=== PATIENT | male | born 1985 | race Caucasian/White ===

== ENCOUNTER → 2018-01-13 | Outpatient (CLI) | payer MEDICARE, OTHER ==
--- NOTE | 2018-01-13 16:07 | XR ---
Abdomen HISTORY: Right lower quadrant pain Frontal view of the abdomen submitted on 2 images There is overlying artifact. No evident bowel obstruction or pneumoperitoneum. Ventriculoperitoneal s acosta tubing is present with the tip in the right hemiabdomen. Lung bases are clear. There is a spinal curvature. No pathologic calcification. IMPRESSION: Shunt tubing in place. Spinal curvature.
== END | disposition home or self-care (01) ==
LOC: RADXRYALE 15:27
PROVIDERS: ATTEND Internal Medicine
DX: R10.84 Generalized abdominal pain (principal); Z98.2 Presence of cerebrospinal fluid drainage device
CPT/HCPCS: 74018

== ENCOUNTER 2018-05-18 12:51 | Inpatient (IN) | payer MEDICARE, MEDICAID ==
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
[2018-05-18 14:49] LABS: Amphetamine Screen,Urine Not Detected (NotDetected); Barbiturate Screen,Urine Not Detected (NotDetected); Benzodiazepines Screen,Urine Not Detected (NotDetected); Cocaine Screen,Urine Not Detected (NotDetected); Methadone Screen, Urine Not Detected (NotDetected); Opiate Screen,Urine Not Detected (NotDetected); Oxycodone Screen, Urine Not Detected (NotDetected); Phencyclidine Screen,Urine Not Detected (NotDetected); Tricyclic Antidepressant,Urine Not Detected (NotDetected); Urn Cannabinoid Scrn Detected (NotDetected)
[2018-05-18] MEDS ORDERED: ZIPRASIDONE 20 MG VIAL IM STA (15:36)
[2018-05-18] MEDS ORDERED: LORazepam 2 MG/ML INJ IM STA (15:36)
[2018-05-18] MEDS ORDERED: HALOPERIDOL 5 MG TAB PO PRN (17:04)
[2018-05-18] MEDS ORDERED: HALOPERIDOL LACTATE 5 MG/ML 1 ML VIAL IM PRN (17:04)
[2018-05-18] MEDS ORDERED: LORazepam 2 MG/ML INJ IM PRN (17:08)
[2018-05-18] MEDS ORDERED: diphenhydrAMINE 50 MG/ML 1 ML VIAL IM PRN (17:21)
[2018-05-18] MEDS ORDERED: MAGNESIUM HYDROXIDE 2,400 MG/10 ML CUP PO PRN (17:27)
[2018-05-19] MEDS: PANTOPRAZOLE 40 MG TABLET PO SCH ×2 (09:12→17:23)
[2018-05-19 09:43] LABS: Basophils # (A) 0.1 k/uL (0-0.2); Basophils % (A) 1 %; Eosinophils # (A) 0.5 k/uL (0-0.7); Eosinophils % (A) 4 %; HCT 53.8 % (39.0-53.0); HGB 17.9 gm/dL (13.0-17.5); Lymphocytes # (A) 2.3 k/uL (1.0-4.8); Lymphocytes % (A) 17 %; MCH 33.3 pg (25.0-35.0); MCHC 33.3 g/dL (31.0-37.0); MCV 100.1 fL (80.0-100.0); Mean Platelet Volume 7.2; Monocytes # (A) 0.8 k/uL (0-1.0); Monocytes % (A) 6 %; Neutrophils # (A) 9.4 k/uL (1.3-7.7); Neutrophils % (A) 71 %; Platelet Count 406 k/uL (150-450); RBC 5.38 m/uL (4.30-5.90); RDW 12.5 % (11.5-15.5); WBC 13.1 k/uL (3.8-10.6)
[2018-05-19 10:09] LABS: ALT 22 U/L (21-72); AST 26 U/L (17-59); Albumin 4.1 g/dL (3.5-5.0); Alkaline Phosphatase 61 U/L (38-126); Anion Gap 10 mmol/L; Blood Urea Nitrogen 14 mg/dL (9-20); Calcium 9.7 mg/dL (8.4-10.2); Carbon Dioxide 24 mmol/L (22-30); Chloride 107 mmol/L (98-107); Glucose 91 mg/dL (74-99); Potassium 4.7 mmol/L (3.5-5.1); Sodium 141 mmol/L (137-145); Total Bilirubin 0.8 mg/dL (0.2-1.3); Total Protein 7.3 g/dL (6.3-8.2)
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
[2018-05-19] MEDS: DIVALPROEX ER 500 MG TAB.ER.24H PO SCH (20:00)
[2018-05-19] MEDS: LORazepam 1 MG TAB PO PRN (20:39)
[2018-05-20] MEDS: PANTOPRAZOLE 40 MG TABLET PO SCH ×2 (07:46→16:35)
[2018-05-20] MEDS: MAG HYDROX/AL HYDROX/SIMETH 30 ML CUP PO PRN (08:06)
--- NOTE | 2018-05-20 09:18 | P.PN ---
Progress Note - Text Interval history: The patient is found in the hallway headed to group he follows me to an interview room. Again the patient's is difficult to communicate with at times due to his expressive aphasia. He seems to answer some questions briefly. He indicates he slept last night. He indicates not liking the food here. He tries to communicate something to me verbally and by doing hand demonstration. I had him try to write out what he is trying to communicate and that was unsuccessful. He had written several letters some backwards and wrote 3 numbers. He demonstrates frustration in that he cannot express himself verbally or in writing. He indicates that he feels somewhat safe here but cannot expand on that answer. It appears he was compliant with the Depakote. Mental status exam: The patient is a male appearing his stated age she has a disheveled appearance he is dressed in hospital gowns. He is abrupt with his actions. He was cooperative and pleasant despite his frustrations with his lack of ability to express. He denies having any thoughts of harming himself or others. He is not able to provide any explanation for the aggressive behavior that was alleged prior to this admission. He endorses no hallucinations. Insight and judgment limited due to his traumatic brain injury. He appears distractible and stimulus bound throughout the session. Plan: We will continue the patient on the Depakote as written. We have begun a discussion regarding his placement needs once he is stabilized. We will need to determine if he is going to be eligible for alf placement through [facility] or if he will need to pursue [facility] home placement if financial resources are available. We will collaborate with his guardian regarding his treatment and discharge planning. Vital signs reviewed. We will continue to monitor him for safety.
[2018-05-20] MEDS: DIVALPROEX ER 500 MG TAB.ER.24H PO SCH (20:32)
[2018-05-20] MEDS: LORazepam 1 MG TAB PO PRN (20:48)
[2018-05-21] MEDS: PANTOPRAZOLE 40 MG TABLET PO SCH ×2 (07:59→16:27)
--- NOTE | 2018-05-21 08:49 | P.PN ---
Subjective Progress Note Date: 05/21/18 Progress Note - Text Interval history: The patient is found in the hallway headed to group he follows me to an interview room. Again the patient's is difficult to communicate with at times due to his expressive aphasia. He seems to answer some questions briefly. He indicates he slept last night. He indicates not liking the food here. He tries to communicate something to me verbally and by doing hand demonstration. I had him try to write out what he is trying to communicate and that was unsuccessful. He had written several letters some backwards and wrote 3 numbers. He demonstrates frustration in that he cannot express himself verbally or in writing. He indicates that he feels somewhat safe here but cannot expand on that answer. It appears he was compliant with the Depakote. Mental status exam: The patient is a male appearing his stated age she has a disheveled appearance he is dressed in hospital gowns. He is abrupt with his actions. He was cooperative and pleasant despite his frustrations with his lack of ability to express. He denies having any thoughts of harming himself or others. He is not able to provide any explanation for the aggressive behavior that was alleged prior to this admission. He endorses no hallucinations. Insight and judgment limited due to his traumatic brain injury. He appears distractible and stimulus bound throughout the session. Plan: We will continue the patient on the Depakote as written. We have begun a discussion regarding his placement needs once he is stabilized. We will need to determine if he is going to be eligible for retirement placement through [facility] or if he will need to pursue AF home placement if financial resources are available. We will collaborate with his guardian regarding his treatment and discharge planning. Vital signs reviewed. We will continue to monitor him for safety. Objective - Vital Signs Vital signs: Vital Signs Temp 97.6 F 05/18/18 17:39 Pulse 77 05/18/18 17:39 Resp 16 05/18/18 17:39 BP 138/96 05/18/18 17:39 Pulse Ox 99 05/18/18 17:39 - Labs CBC & Chem 7: 05/19/18 09:23 05/19/18 09:23
[2018-05-21] MEDS: MAG HYDROX/AL HYDROX/SIMETH 30 ML CUP PO PRN (09:02)
[2018-05-21 12:43] LABS: Appearance,Urine Turbid (Clear); Bacteria,Urine Rare /hpf; Bilirubin,Urine Negative (Negative); Blood,Urine Trace (Negative); Budding Yeast,Urine Few /hpf; Color,Urine Yellow; Glucose,Urine (UA) Negative (Negative); Ketones,Urine 1+ (Negative); Leukocyte Esterase,Urine Negative (Negative); Mucus,Urine Moderate /hpf; Nitrite,Urine Negative (Negative); Protein,Urine 3+ (Negative); RBC,Urine 5 /hpf (0-5); Specific Gravity,Urine 1.021 (1.001-1.035); Sperm,Urine Many /hpf; Urobilinogen,Urine <2.0 mg/dL (<2.0)
[2018-05-21] MEDS: DIVALPROEX ER 500 MG TAB.ER.24H PO SCH (20:20)
[2018-05-21] MEDS: LORazepam 1 MG TAB PO PRN (20:22)
[2018-05-21] MEDS: diphenhydrAMINE 50 MG CAP PO STA (21:51)
[2018-05-21] MEDS ORDERED: diphenhydrAMINE 50 MG CAP PO STA (22:26)
[2018-05-22] MEDS: PANTOPRAZOLE 40 MG TABLET PO SCH ×2 (07:53→16:38)
--- NOTE | 2018-05-22 09:36 | P.PN ---
Subjective Progress Note Date: 05/22/18 Progress Note - Text Interval history: The patient is found in the hallway headed to group he follows me to an interview room. Again the patient's is difficult to communicate with at times due to his expressive aphasia. He seems to answer some questions briefly. He indicates he slept last night. He indicates not liking the food here. He tries to communicate something to me verbally and by doing hand demonstration. I had him try to write out what he is trying to communicate and that was unsuccessful. He had written several letters some backwards and wrote 3 numbers. He demonstrates frustration in that he cannot express himself verbally or in writing. He indicates that he feels somewhat safe here but cannot expand on that answer. It appears he was compliant with the Depakote. Mental status exam: The patient is a male appearing his stated age she has a disheveled appearance he is dressed in hospital gowns. He is abrupt with his actions. He was cooperative and pleasant despite his frustrations with his lack of ability to express. He denies having any thoughts of harming himself or others. He is not able to provide any explanation for the aggressive behavior that was alleged prior to this admission. He endorses no hallucinations. Insight and judgment limited due to his traumatic brain injury. He appears distractible and stimulus bound throughout the session. Plan: We will continue the patient on the Depakote as written. We have begun a discussion regarding his placement needs once he is stabilized. We will need to determine if he is going to be eligible for correction placement through [facility] or if he will need to pursue AF home placement if financial resources are available. We will collaborate with his guardian regarding his treatment and discharge planning. Vital signs reviewed. We will continue to monitor him for safety. Objective - Vital Signs Vital signs: Vital Signs Temp 97.9 F 05/22/18 06:13 Pulse 80 05/22/18 06:13 Resp 16 05/22/18 06:13 BP 125/71 05/22/18 06:13 Pulse Ox 99 05/18/18 17:39 - Labs CBC & Chem 7: 05/19/18 09:23 05/19/18 09:23 Labs: Abnormal Lab Results - Last 24 Hours (Table) 05/21/18 Range/Units 12:30 Urine Protein 3+ H (Negative) Urine Ketones 1+ H (Negative) Urine Blood Trace H (Negative) Urine Bacteria Rare H (None) /hpf Urine Mucus Moderate H (None) /hpf Urine Yeast (Budding) Few H (None) /hpf Urine Sperm Many H (None) /hpf Assessment and Plan (1) Aggression Current Visit: Yes Status: Acute Priority: Medium Code(s): R46.89 - OTHER SYMPTOMS AND SIGNS INVOLVING APPEARANCE AND BEHAVIOR SNOMED Code(s): 65796278 (2) Agitation Current Visit: Yes Status: Acute Priority: Medium Code(s): R45.1 - RESTLESSNESS AND AGITATION SNOMED Code(s): 014867948 (3) Anxiety Current Visit: Yes Status: Acute Priority: Medium Code(s): F41.9 - ANXIETY DISORDER, UNSPECIFIED SNOMED Code(s): 12536069
[2018-05-22] MEDS ORDERED: diphenhydrAMINE 50 MG CAP PO STA (20:54)
[2018-05-22] MEDS: DIVALPROEX ER 500 MG TAB.ER.24H PO SCH (21:02)
[2018-05-23] MEDS: PANTOPRAZOLE 40 MG TABLET PO SCH ×2 (08:29→16:30)
--- NOTE | 2018-05-23 11:11 | P.PN ---
Progress Note - Text Interval history: The patient is found at the service desk associate he follows me to an interview room. He reports his mood is okay. Staff report no behavioral disturbances over the weekend. The patient has been compliant with the Depakote. Social work informed me that they did contact his guardian and they are amenable to AFC home placement and he should have sufficient income. Social work will begin pursuing available AFC homes. Again the patient is only able to participate in the interview in a limited fashion due to his expressive aphasia. He indicates that he is eating although he does not like the food here. He reports it's noisy and it's hard to sleep. Mental status exam: The patient is alert he has a disheveled appearance he is dressed in his own clothing. Eye contact is intermittent. Speech is spontaneous. He will make several statements and phrases that do not fit the context of our conversation. He does appear to understand several of the questions I ask or statements that I make. He will have repetitive statements mixed in with his answers. He demonstrates no verbal or physical aggressiveness. He consistently has a smiling affect. He attempts to use humor appropriately. Insight and judgment limited due to traumatic brain injury. He reports no thoughts of wanting to harm himself or others he is endorsing no hallucinations. Plan: The patient has been able to demonstrate consistent behavior while on the mental health unit so far. He appears to be tolerating the Depakote appropriately. We will draw a Depakote level and check the liver enzymes. Social work will begin looking for AFC home placement. We will monitor his vitals further we will monitor him for safety.
[2018-05-23] MEDS: DIVALPROEX ER 500 MG TAB.ER.24H PO SCH (20:26)
[2018-05-23] MEDS: LORazepam 1 MG TAB PO PRN (22:15)
[2018-05-24] MEDS: PANTOPRAZOLE 40 MG TABLET PO SCH ×2 (08:01→16:37)
[2018-05-24 11:05] LABS: Valproic Acid (Depakene) 37.8 ug/mL
--- NOTE | 2018-05-24 13:52 | P.HP ---
Psychiatric H&P - . History & Physical: 05/24/18 13:48 Interval history: The patient is found in the hallway he follows me to an interview room. He reports his mood is stable. Staff report no behavioral issues in the last 24 hours. The patient's is eating he selectively participates in group. Depakote level was drawn this morning and it was approximately 37. Again the patient has an expressive aphasia and it is difficult to me indicating with him. Mental status exam: The patient is alert he has a disheveled appearance he is dressed in his own clothing. Eye contact is appropriate he has some spontaneous speech, however he has great difficulty communicating. He will state random letters or words and at times say phrases that seem to fit the context of the conversation. He does have expressions that seem to be congruent to the conversation at times indicating he understands what I was saying. He demonstrates no verbal or physical aggressiveness. He is endorsing no hallucinations. Affect is bright and smiling throughout the session. Insight and judgment limited. Plan: The patient will continue on the Depakote ER, we will titrate the dose to 1250 mg at bedtime. We are using this medication to stabilize mood and affect and hopefully reduce aggressive impulses. He has demonstrated appropriate behavior while here. We will look for an appropriate AFC home placement for him. Vital signs reviewed.
[2018-05-24] MEDS: LORazepam 1 MG TAB PO PRN (20:42)
[2018-05-24] MEDS: DIVALPROEX ER 250 MG TAB.ER.24H PO SCH (20:42)
[2018-05-24] MEDS: DIVALPROEX ER 500 MG TAB.ER.24H PO SCH (20:42)
[2018-05-24] MEDS: MAG HYDROX/AL HYDROX/SIMETH 30 ML CUP PO PRN (20:42)
[2018-05-24] MEDS: ACETAMINOPHEN TAB 325 MG TAB PO PRN (20:44)
[2018-05-25] MEDS: PANTOPRAZOLE 40 MG TABLET PO SCH ×2 (07:49→15:33)
--- NOTE | 2018-05-25 10:19 | P.PN ---
Progress Note - Text Interval history: The patient is found in group he follows me to an interview room. He was observed attempting to participate in group. He is recorded to have slept 6 hours last evening. Appetite is stable. The patient has demonstrated no agitated behavior. He has been compliant with medication. We will get an update from social work regarding placement options. Mental status exam: The patient is alert he is dressed in the same clothing. He has a disheveled appearance hygiene is adequate. He reports feeling safe. He seems to indicate he has no thoughts of harming himself or others. Again it is difficult communicating due to his expressive aphasia. He demonstrates no verbal or physical aggressiveness during our session. He does demonstrate some understanding of what I am telling him. Affect remains bright and often smiling. He is reporting no hallucinations. Insight and judgment limited. Plan: The patient will continue on his current medication the Depakote has been titrated. We will draw another blood level when appropriate. We are awaiting [facility] home placement options. Vital signs reviewed. We will continue monitoring him for safety.
[2018-05-25] MEDS: MAG HYDROX/AL HYDROX/SIMETH 30 ML CUP PO PRN ×2 (10:45→14:32)
[2018-05-25] MEDS: ARTIFICIAL TEARS-HYPROMELLOSE DROPS 15 ML BTL RIGHT EYE PRN (13:13)
[2018-05-25] MEDS: DIVALPROEX ER 250 MG TAB.ER.24H PO SCH (20:08)
[2018-05-25] MEDS: DIVALPROEX ER 500 MG TAB.ER.24H PO SCH (20:09)
[2018-05-25] MEDS: ACETAMINOPHEN TAB 325 MG TAB PO PRN (21:31)
[2018-05-25] MEDS: LORazepam 1 MG TAB PO PRN (21:31)
[2018-05-26] MEDS: ARTIFICIAL TEARS-HYPROMELLOSE DROPS 15 ML BTL RIGHT EYE PRN (06:12)
[2018-05-26] MEDS: PANTOPRAZOLE 40 MG TABLET PO SCH ×2 (09:08→17:43)
[2018-05-26 09:43] VITALS: BMI 29.4
[2018-05-26] MEDS: MAG HYDROX/AL HYDROX/SIMETH 30 ML CUP PO PRN ×2 (10:48→20:22)
[2018-05-26] MEDS: LORazepam 1 MG TAB PO PRN (10:49)
[2018-05-26] MEDS ORDERED: SODIUM CHLORIDE 0.65% NASAL SPRAY 44 ML BTL NASAL PRN (14:30)
[2018-05-26] MEDS ORDERED: SALINE NASAL GEL 14.1 GM TUBE TOPICAL PRN (14:30)
--- NOTE | 2018-05-26 16:30 | P.PN ---
Progress Note - Text Interval history: The patient is found in group he refuses to meet with me as he wants to continue group participation. I did speak with him briefly afterwards. Staff report that the patient is doing quite well given his diagnosis and previous history of behavioral issues. He appears to be sleeping at night he is eating there have been no behavioral disturbances in the last 24 hours. I was informed that he may be appropriate for fpc placement as early as Wednesday. Mental status exam: The patient is observed participating in group appropriately. He is interacting with staff appropriately. He utilizes humor when possible. He has a disheveled appearance eye contact is appropriate. He is demonstrating no verbal or physical aggressiveness. He indicates having no auditory or visual hallucinations or any thoughts of harming himself or others. He is alert. He continues to demonstrate the ongoing significant expressive aphasia. Plan: The patient will continue on his current medications we will draw a Depakote level soon. We are anticipating placement at a [facility] Wednesday.
[2018-05-26] MEDS: LORATADINE 10 MG TAB PO SCH (17:43)
[2018-05-26] MEDS: DIVALPROEX ER 500 MG TAB.ER.24H PO SCH ×2 (20:20→20:23)
[2018-05-26] MEDS: DIVALPROEX ER 250 MG TAB.ER.24H PO SCH ×2 (20:20→20:23)
[2018-05-27] MEDS: MAG HYDROX/AL HYDROX/SIMETH 30 ML CUP PO PRN (08:08)
[2018-05-27] MEDS: LORATADINE 10 MG TAB PO SCH (08:08)
[2018-05-27] MEDS: PANTOPRAZOLE 40 MG TABLET PO SCH ×2 (08:08→16:39)
--- NOTE | 2018-05-27 11:22 | P.PN ---
Progress Note - Text Interval history: The patient is found at the desk he follows me to an interview room. It is confirmed that the patient is able to transition to a [facility] bed Wednesday. The patient's guardian is agreeable to this discharge plan. The patient continues to maintain appropriate behavior he has been compliant with medication. Staff voiced no concerns about him being discharged to [facility] placement. No behavioral disturbances in the last 24 hours. Mental status exam: The patient is alert he has a disheveled appearance he is dressed in the same clothing. Hygiene is adequate. He chronically demonstrates an expressive aphasia. He does get frustrated when he cannot communicate his thoughts to me but he does not become agitated. He will often ask for a pen and paper to draw or write something that will sometimes assist us in the conversation. He has repetitive phrases that he will use throughout the session. He is reporting no thoughts of self-harm or harm to others. He is endorsing no hallucinations. He reports feeling safe. He demonstrates no physical aggressiveness. Insight and judgment chronically limited. Plan: The patient will continue on his current medication we will draw a Depakote level tomorrow morning. We will anticipate discharging him Wednesday to a [facility] if he remains clinically stable. Vital signs reviewed.
[2018-05-27] MEDS: ARTIFICIAL TEARS-HYPROMELLOSE DROPS 15 ML BTL RIGHT EYE PRN (12:57)
[2018-05-27] MEDS: DIVALPROEX ER 250 MG TAB.ER.24H PO SCH (22:01)
[2018-05-27] MEDS: DIVALPROEX ER 500 MG TAB.ER.24H PO SCH (22:04)
[2018-05-27] MEDS: LORazepam 1 MG TAB PO PRN (22:42)
[2018-05-28] MEDS: PANTOPRAZOLE 40 MG TABLET PO SCH ×2 (08:03→17:16)
[2018-05-28] MEDS: LORATADINE 10 MG TAB PO SCH (08:03)
[2018-05-28 09:38] LABS: Valproic Acid (Depakene) 49.6 ug/mL
[2018-05-28] MEDS: MAG HYDROX/AL HYDROX/SIMETH 30 ML CUP PO PRN (17:17)
--- NOTE | 2018-05-28 17:23 | P.PN ---
Progress Note - Text Progress Note Date: 05/28/18 Interval history: Patient seen in cross coverage today. He does not voice any adverse psychotropic medication side effects. He seems to relate that medications could be working better for sleep. Mental status exam: He is alert and cooperative with the interview. He does not show any agitation. He does exhibit some expressive aphasia. He does not show any agitation. He does not verbalize any thoughts of harm to self or others. Mood currently appears to be fairly stable. Plan: Patient will be maintained on current psychotropic medication regimen. Continue to monitor his ongoing status and monitor for any medication side effects.
[2018-05-28] MEDS: DIVALPROEX ER 500 MG TAB.ER.24H PO SCH (20:08)
[2018-05-28] MEDS: DIVALPROEX ER 250 MG TAB.ER.24H PO SCH (20:08)
[2018-05-29] MEDS: ARTIFICIAL TEARS-HYPROMELLOSE DROPS 15 ML BTL RIGHT EYE PRN ×2 (08:24→17:19)
[2018-05-29] MEDS: PANTOPRAZOLE 40 MG TABLET PO SCH ×2 (08:24→17:16)
[2018-05-29] MEDS: LORATADINE 10 MG TAB PO SCH (08:24)
[2018-05-29] MEDS: MAG HYDROX/AL HYDROX/SIMETH 30 ML CUP PO PRN (14:46)
--- NOTE | 2018-05-29 15:33 | P.PN ---
Progress Note - Text Progress Note Date: 05/29/18 Interval history: Patient is seen again in cross coverage today. He reports that his mood is doing okay but he does feel like he is crying some today because he misses his family. He says he is taking his psychotropic medications. Mental status exam: He is alert and cooperative with the interview. He does exhibit some expressive aphasia. He denies any thoughts of harm to self or others. He denies any hallucinations. He does not show any agitation. Plan: Patient will be maintained on current psychotropic medication regimen. Continue to monitor for any medication side effects monitor his ongoing response to treatment.
[2018-05-29] MEDS: DIVALPROEX ER 250 MG TAB.ER.24H PO SCH (19:50)
[2018-05-29] MEDS: DIVALPROEX ER 500 MG TAB.ER.24H PO SCH (19:50)
[2018-05-29] MEDS: LORazepam 1 MG TAB PO PRN (22:58)
[2018-05-30 05:16] VITALS: BP 141/79; PULSE 80; RESP 14; TEMP 98.4
[2018-05-30] MEDS: PANTOPRAZOLE 40 MG TABLET PO SCH (07:46)
[2018-05-30] MEDS: LORATADINE 10 MG TAB PO SCH (07:46)
[2018-05-30] MEDS: ARTIFICIAL TEARS-HYPROMELLOSE DROPS 15 ML BTL RIGHT EYE PRN (08:45)
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
== END 2018-05-30 09:55 | disposition home or self-care (01) | DRG 885 ==
LOC: EC 12:51 → 3MHU 16:53
PROVIDERS: ADMIT Psychiatry & Neurology Psychiatry; ATTEND Psychiatry & Neurology Psychiatry
DX: F31.9 Bipolar disorder, unspecified (principal); R47.01 Aphasia; I69.851 Hemiplegia and hemiparesis following other cerebrovascular disease affecting right dominant side; F41.9 Anxiety disorder, unspecified; F17.200 Nicotine dependence, unspecified, uncomplicated; F90.9 Attention-deficit hyperactivity disorder, unspecified type; G40.909 Epilepsy, unspecified, not intractable, without status epilepticus; G47.30 Sleep apnea, unspecified; K21.9 Gastro-esophageal reflux disease without esophagitis; Z82.3 Family history of stroke; Z87.820 Personal history of traumatic brain injury; Z98.2 Presence of cerebrospinal fluid drainage device; Z83.2 Family history of diseases of the blood and blood-forming organs and certain disorders involving the immune mechanism; Z80.9 Family history of malignant neoplasm, unspecified; Z88.8 Allergy status to other drugs, medicaments and biological substances; Z79.899 Other long term (current) drug therapy; R26.0 Ataxic gait; R26.81 Unsteadiness on feet; Z87.01 Personal history of pneumonia (recurrent); G62.9 Polyneuropathy, unspecified; D72.829 Elevated white blood cell count, unspecified; Z71.51 Drug abuse counseling and surveillance of drug abuser; Z71.6 Tobacco abuse counseling; F17.210 Nicotine dependence, cigarettes, uncomplicated; F12.10 Cannabis abuse, uncomplicated; Z63.4 Disappearance and death of family member; Z86.14 Personal history of Methicillin resistant Staphylococcus aureus infection; Z90.81 Acquired absence of spleen; Z56.0 Unemployment, unspecified; F10.10 Alcohol abuse, uncomplicated; V49.9XXS Car occupant (driver) (passenger) injured in unspecified traffic accident, sequela
CPT/HCPCS: 80053; 80164; 80306; 81001; 82075; 84443; 84450; 84460; 85025; 96372; 99285

== ENCOUNTER 2018-06-08 22:54 | Emergency (ER) | payer MEDICARE, OTHER ==
[2018-06-08 23:21] VITALS: BP 125/88; PULSE 71; RESP 20; TEMP 97.7
[2018-06-09] MEDS ORDERED: ACETAMINOPHEN TAB 500 MG TAB PO STA (00:30)
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
--- NOTE | 2018-06-09 01:08 | XR ---
EXAMINATION TYPE: XR ankle complete RT DATE OF EXAM: 06/09/2018 COMPARISON: NONE HISTORY: Pain TECHNIQUE: 3 views FINDINGS: Ankle mortise is anatomic. I see no fracture nor dislocation. Joint spaces are normal. IMPRESSION: Negative right ankle exam.
--- NOTE | 2018-06-09 01:09 | XR ---
EXAMINATION TYPE: XR foot complete RT DATE OF EXAM: 06/09/2018 COMPARISON: NONE HISTORY: Pain TECHNIQUE: 3 views FINDINGS: Metatarsals appear intact. I see no fracture nor dislocation. Joint spaces are normal. IMPRESSION: Negative right foot exam.
--- NOTE | 2018-06-09 01:11 | XR ---
EXAMINATION TYPE: XR hand complete RT DATE OF EXAM: 06/09/2018 COMPARISON: 04/05/2014 HISTORY: Pain TECHNIQUE: 3 views FINDINGS: There is some subluxation deformity at the second through fifth MP joints. Metacarpals appe ar intact. Carpal bones are intact. There is no view obtained in anatomic position. I see no erosions . IMPRESSION: There is subluxation deformity that could relate to ligament laxity. No fracture seen. I do not see erosions to suggest rheumatoid arthritis. Subluxation is worse than last exam.
== END 2018-06-09 02:10 | disposition home or self-care (01) ==
LOC: EC 22:54
DX: M79.671 Pain in right foot (principal); M79.641 Pain in right hand; R60.0 Localized edema; G47.30 Sleep apnea, unspecified; Z99.89 Dependence on other enabling machines and devices; F17.200 Nicotine dependence, unspecified, uncomplicated; Z86.14 Personal history of Methicillin resistant Staphylococcus aureus infection; Z79.899 Other long term (current) drug therapy; Z88.8 Allergy status to other drugs, medicaments and biological substances; Z91.09 Other allergy status, other than to drugs and biological substances
CPT/HCPCS: 99283

== ENCOUNTER → 2018-07-26 | Outpatient (CLI) | payer MEDICARE, OTHER ==
[2018-07-26 15:55] LABS: Valproic Acid (Depakene) 61.8 ug/mL (50.0-100.0)
[2018-07-26 16:36] LABS: Albumin 4.3 g/dL (3.80-4.90); Albumin/Globulin Ratio 1.79 (1.20-2.10); Bilirubin, Conjugated 0.2 mg/dL (0.20-0.40); Bilirubin,Unconjugated 0.3 mg/dL; Globulin 2.4 g/dL (2.1-3.7); LDL Cholesterol,Calculated 88.4 mg/dL (0.0-131.0); Total Bilirubin 0.5 mg/dL (0.2-1.2); Total Protein 6.7 g/dL (6.2-8.2); VLDL Calculation 32.6 mg/dL (5.00-40.00)
[2018-07-26 18:57] LABS: Hemoglobin A1C 5.7 % (4.0-6.0)
== END | disposition home or self-care (01) ==
LOC: LABWHC1 09:57
PROVIDERS: ATTEND Psychiatry & Neurology Psychiatry
DX: Z51.81 Encounter for therapeutic drug level monitoring (principal); Z79.899 Other long term (current) drug therapy
CPT/HCPCS: 36415; 80061; 80076; 80164; 82947; 83036; 84439; 84443

== ENCOUNTER 2019-10-28 20:50 | Emergency (ER) | payer MEDICARE, OTHER ==
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
[2019-10-28 21:13] VITALS: BP 127/94; PULSE 87; RESP 18; TEMP 98.3
--- NOTE | 2019-10-28 21:47 | XR ---
EXAMINATION TYPE: XR chest 2V DATE OF EXAM: 10/28/2019 COMPARISON: 01/16/2016 HISTORY: Chest pain after fall TECHNIQUE: Frontal and lateral views of the chest are obtained. FINDINGS: There is no focal air space opacity, pleural effusion, or pneumothorax seen. The cardiac silhouette size is within normal limits. The osseous structures are intact. Ventriculoperitoneal dr ain is partially seen overlying the right hemithorax. IMPRESSION: No acute cardiopulmonary process.
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
--- NOTE | 2019-10-28 21:56 | XR ---
EXAMINATION TYPE: XR forearm RT DATE OF EXAM: 10/28/2019 CLINICAL HISTORY: Right arm pain after fall TECHNIQUE: Two views of the right forearm are obtained. COMPARISON: None. FINDINGS: There is no acute fracture or dislocation seen in the right radius or ulna. The right elb ow and wrist joints appear within normal limits. The overlying soft tissue appears within normal freitas its. IMPRESSION: There is no acute fracture or dislocation seen in the right radius or ulna.
--- NOTE | 2019-10-28 21:57 | XR ---
EXAMINATION TYPE: XR Hip RT and AP Pelvis DATE OF EXAM: 10/28/2019 COMPARISON: NONE HISTORY: Right hip and pelvic pain after fall TECHNIQUE: A single AP view of the pelvis is obtained. Two views of the right hip are obtained. FINDINGS: Inferior margin of the ventriculoperitoneal shunt overlies the right iliac crest. There is no acute fracture/dislocation evident in the pelvis. The hip and sacroiliac joints appear symmetric and mildly narrowed bilaterally with acetabular roof sclerosis appearing as minimal arthropathy that is overall symmetric. The overlying soft tissue appears unremarkable. Two views of right hip show no acute fracture or dislocation. No focal lytic or sclerotic lesion see n in the proximal right femur. The overlying soft tissue is unremarkable. IMPRESSION: There is no acute fracture or dislocation in the pelvis or right hip.
[2019-10-28] MEDS ORDERED: diphenhydrAMINE 50 MG/ML 1 ML VIAL IM STA (22:55)
== END 2019-10-28 23:19 | disposition home or self-care (01) ==
LOC: EC 20:50
DX: S00.93XA Contusion of unspecified part of head, initial encounter (principal); F17.200 Nicotine dependence, unspecified, uncomplicated; Z88.4 Allergy status to anesthetic agent; Z88.8 Allergy status to other drugs, medicaments and biological substances; Z91.048 Other nonmedicinal substance allergy status; Z86.14 Personal history of Methicillin resistant Staphylococcus aureus infection; Z87.820 Personal history of traumatic brain injury; Z98.2 Presence of cerebrospinal fluid drainage device; Z84.89 Family history of other specified conditions; W19.XXXA Unspecified fall, initial encounter; Y92.89 Other specified places as the place of occurrence of the external cause
CPT/HCPCS: 73502; 73090; 71046; 72125; 70450; 99284; 96372; J1200

== ENCOUNTER 2020-02-04 20:24 | Emergency (ER) | payer MEDICARE, OTHER ==
[2020-02-04 20:33] VITALS: TEMP 98.3
[2020-02-04] MEDS ORDERED: SODIUM CHLORIDE 0.9% 1,000 ML IV STA (20:41)
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
[2020-02-04 20:56] LABS: Glucose,Whole Blood 130 mg/dL (75-99)
[2020-02-04 21:09] LABS: Basophils # (A) 0.2 k/uL (0-0.2); Basophils % (A) 1 %; Eosinophils # (A) 0.4 k/uL (0-0.7); Eosinophils % (A) 2 %; HCT 48.1 % (39.0-53.0); HGB 16.5 gm/dL (13.0-17.5); Lymphocytes # (A) 5.8 k/uL (1.0-4.8); Lymphocytes % (A) 34 %; MCH 34.8 pg (25.0-35.0); MCHC 34.2 g/dL (31.0-37.0); MCV 101.8 fL (80.0-100.0); Mean Platelet Volume 7.7; Monocytes # (A) 1.4 k/uL (0-1.0); Monocytes % (A) 8 %; Neutrophils # (A) 8.7 k/uL (1.3-7.7); Neutrophils % (A) 52 %; Platelet Count 463 k/uL (150-450); RBC 4.73 m/uL (4.30-5.90); RDW 12.4 % (11.5-15.5); WBC 16.7 k/uL (3.8-10.6)
[2020-02-04 21:11] LABS: Potassium 4.3 mmol/L (3.5-5.1)
[2020-02-04 21:12] LABS: African American GFR (CKD) >90 (>60 ml/min/1.73 sqM); Anion Gap 17 mmol/L; Blood Urea Nitrogen 15 mg/dL (9-20); Calcium 9.6 mg/dL (8.4-10.2); Carbon Dioxide 13 mmol/L (22-30); Chloride 108 mmol/L (98-107); Glucose 108 mg/dL (74-99); Non-African American GFR(CKD) >90 (>60 ml/min/1.73 sqM); Sodium 138 mmol/L (137-145)
[2020-02-04 21:17] LABS: Valproic Acid (Depakene) 22.7 ug/mL
[2020-02-04] MEDS ORDERED: DIVALPROEX 500 MG TABLET.DR PO STA (21:49)
[2020-02-04 22:15] VITALS: BP 117/87; PULSE 79; RESP 16
== END 2020-02-04 22:55 | disposition home or self-care (01) ==
LOC: EEVIPCON 20:24 → EC 20:24
DX: G40.909 Epilepsy, unspecified, not intractable, without status epilepticus (principal); G47.30 Sleep apnea, unspecified; Z88.8 Allergy status to other drugs, medicaments and biological substances; Z91.048 Other nonmedicinal substance allergy status; Z88.6 Allergy status to analgesic agent; Z86.73 Personal history of transient ischemic attack (TIA), and cerebral infarction without residual deficits; Z87.891 Personal history of nicotine dependence; Z99.89 Dependence on other enabling machines and devices
CPT/HCPCS: 36415; 80048; 80164; 85025; 96360; 99284

== ENCOUNTER 2020-03-25 11:36 | Observation (INO) | payer MEDICARE, OTHER ==
[2020-03-25] MEDS ORDERED: SODIUM CHLORIDE 0.9% 1,000 ML IV STA (11:49)
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
--- NOTE | 2020-03-25 12:28 | XR ---
EXAMINATION TYPE: XR chest 1V portable DATE OF EXAM: 03/25/2020 COMPARISON: 10/28/2019 HISTORY: Pain TECHNIQUE: Single frontal view of the chest is obtained. FINDINGS: There is no focal air space opacity, pleural effusion, or pneumothorax seen. The cardiac silhouette size is within normal limits. The osseous structures are intact. VENEER STAPLER shunt catheter noted . Mild hyperinflation. Heart size normal. Linear changes at the lung bases most typical of atelectasi s. IMPRESSION: Basilar atelectasis favored over pneumonia.
[2020-03-25 12:29] LABS: AST 40 U/L (17-59); African American GFR (CKD) >90 (>60 ml/min/1.73 sqM); Albumin 5.4 g/dL (3.5-5.0); Alkaline Phosphatase 57 U/L (38-126); Basophils # (A) 0.3 k/uL (0-0.2); Basophils % (A) 1 %; Blood Urea Nitrogen 14 mg/dL (9-20); Calcium 10.8 mg/dL (8.4-10.2); Chloride 107 mmol/L (98-107); Eosinophils # (A) 0.7 k/uL (0-0.7); Eosinophils % (A) 4 %; Glucose 137 mg/dL (74-99); HGB 17.4 gm/dL (13.0-17.5); Hypochromasia Marked; Lymphocytes # (A) 7.8 k/uL (1.0-4.8); Lymphocytes % (A) 41 %; MCH 33.2 pg (25.0-35.0); MCHC 30.9 g/dL (31.0-37.0); Macrocytosis Moderate; Mean Platelet Volume 8.6; Monocytes # (A) 1.5 k/uL (0-1.0); Monocytes % (A) 8 %; Neutrophils # (A) 7.9 k/uL (1.3-7.7); Neutrophils % (A) 42 %; Non-African American GFR(CKD) 79 (>60 ml/min/1.73 sqM); Platelet Count 521 k/uL (150-450); Potassium 5.2 mmol/L (3.5-5.1); RBC 5.24 m/uL (4.30-5.90); RDW 12.4 % (11.5-15.5); Sodium 142 mmol/L (137-145); Total Bilirubin 0.5 mg/dL (0.2-1.3); Total Protein 9.2 g/dL (6.3-8.2); WBC 18.8 k/uL (3.8-10.6)
[2020-03-25 12:30] LABS: HCT 56.5 % (39.0-53.0); MCV 107.7 fL (80.0-100.0)
[2020-03-25 12:33] LABS: Valproic Acid (Depakene) 38.3 ug/mL
[2020-03-25 12:51] LABS: Poikilocytosis (M) Present
[2020-03-25 12:58] LABS: ALT 29 U/L (4-49); Carbon Dioxide <5 mmol/L (22-30)
[2020-03-25] MEDS ORDERED: NALOXONE 0.4 MG/ML 1 ML VIAL IV PRN (14:51)
[2020-03-25] MEDS: SODIUM CHLORIDE 0.9% 1,000 ML IV SCH ×2 (18:06→21:49)
[2020-03-25] MEDS: OLANZapine 5 MG TAB PO SCH (20:34)
[2020-03-25] MEDS: SENNOSIDES-DOCUSATE SODIUM 1 EACH TAB PO SCH (20:35)
[2020-03-25] MEDS ORDERED: DIVALPROEX ER 500 MG TAB.ER.24H PO SCH (21:00)
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
[2020-03-26 04:18] LABS: Appearance,Urine Clear (Clear); Bilirubin,Urine Negative (Negative); Blood,Urine Negative (Negative); Color,Urine Light Yellow; Glucose,Urine (UA) Negative (Negative); Ketones,Urine Negative (Negative); Leukocyte Esterase,Urine Negative (Negative); Nitrite,Urine Negative (Negative); PH, Urine 6.5 (5.0-8.0); Protein,Urine Negative (Negative); Specific Gravity,Urine 1.008 (1.001-1.035); Urobilinogen,Urine <2.0 mg/dL (<2.0)
[2020-03-26] MEDS ORDERED: DEXTROSE 5% IN WATER 1,000 ML with SODIUM BICARB (1 MEQ/ML) 150 ML IV SCH (07:30)
[2020-03-26] MEDS: SENNOSIDES-DOCUSATE SODIUM 1 EACH TAB PO SCH ×2 (08:30→21:18)
[2020-03-26] MEDS: FENOFIBRATE 160 MG TAB PO SCH (08:30)
[2020-03-26] MEDS: PANTOPRAZOLE 40 MG TABLET PO SCH (08:30)
[2020-03-26 08:42] LABS: Basophils # (A) 0.1 k/uL (0-0.2); Basophils % (A) 1 %; Eosinophils # (A) 0.3 k/uL (0-0.7); Eosinophils % (A) 2 %; HCT 46.5 % (39.0-53.0); HGB 15.4 gm/dL (13.0-17.5); Lymphocytes # (A) 3.2 k/uL (1.0-4.8); Lymphocytes % (A) 24 %; MCH 32.9 pg (25.0-35.0); MCHC 33.1 g/dL (31.0-37.0); Mean Platelet Volume 7.7; Monocytes # (A) 1.3 k/uL (0-1.0); Monocytes % (A) 10 %; Neutrophils % (A) 60 %; Platelet Count 472 k/uL (150-450); RBC 4.67 m/uL (4.30-5.90); RDW 12.5 % (11.5-15.5); WBC 13.3 k/uL (3.8-10.6)
[2020-03-26 08:50] LABS: MCV 99.6 fL (80.0-100.0)
[2020-03-26 09:15] LABS: ALT 21 U/L (4-49); AST 36 U/L (17-59); African American GFR (CKD) >90 (>60 ml/min/1.73 sqM); Albumin 3.9 g/dL (3.5-5.0); Alkaline Phosphatase 49 U/L (38-126); Anion Gap 6 mmol/L; Blood Urea Nitrogen 12 mg/dL (9-20); Calcium 9.3 mg/dL (8.4-10.2); Carbon Dioxide 22 mmol/L (22-30); Chloride 111 mmol/L (98-107); Glucose 82 mg/dL (74-99); Non-African American GFR(CKD) >90 (>60 ml/min/1.73 sqM); Potassium 4.5 mmol/L (3.5-5.1); Sodium 139 mmol/L (137-145); Total Bilirubin 0.6 mg/dL (0.2-1.3); Total Protein 6.9 g/dL (6.3-8.2)
--- NOTE | 2020-03-26 09:17 | CT ---
EXAMINATION TYPE: CT brain wo con DATE OF EXAM: 03/26/2020 COMPARISON: CT brain October 28, 2019 HISTORY: Seizure. CT DLP: 1146.4 mGycm. Automated Exposure Control for Dose Reduction was Utilized. TECHNIQUE: CT scan of the head is performed without contrast. 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 Stable slight midline shift to the left from l eft-sided volume loss. No acute intracranial hemorrhage. Stable right parietal jyotsna hole with LIFEGUARD shunt catheter terminating near the left distal ICA bifurcation in the suprasellar cistern. Ventricular size is stable without h ydrocephalus. Persistent patchy opacification and mucosal thickening involving the ethmoid sinuses bilaterally with mild mucosal thickening in visualized portion of the bilateral maxillary sinuses. IMPRESSION: No acute intracranial hemorrhage. Chronic changes as detailed above without significant change from most recent prior CT. Ventricular size stable.
[2020-03-26 09:41] LABS: Valproic Acid (Depakene) 37.6 ug/mL
[2020-03-26] MEDS ORDERED: DIVALPROEX 500 MG TABLET.DR PO STA (10:02)
--- NOTE | 2020-03-26 13:12 | P.PN ---
Subjective Progress Note Date: 03/26/20 No new Complaints, patient feels like he is back to his baseline. No further episodes of seizure. Objective - Vital Signs Vital signs: Vital Signs Temp 99.4 F 03/26/20 07:08 Pulse 63 03/26/20 07:35 Resp 18 03/26/20 07:35 BP 118/74 03/26/20 07:08 Pulse Ox 93 L 03/26/20 07:08 Intake & Output 03/25/20 03/26/20 03/26/20 18:59 06:59 18:59 Intake Total 300 Output Total 900 900 Balance -600 -900 Weight 99.019 kg 99.019 kg Intake: Intake, IV Titration 300 Amount Sodium Chloride 0.9% 1, 300 000 ml @ 100 mls/hr IV . Q10H [facility] Rx#:[id number] Output: Urine 900 900 Other: # Voids 1 3 # Bowel Movements 1 - Exam Gen: awake, alert HEENT: normocephalic, atraumatic, good hearing acuity, moist mucous membranes Resp: CTAB, good air exchange, no accessory muscle use, no wheezes, crackles, rhonchi CVS: good distal perfusion x 4, RRR, no murmurs, clicks, gallops GI: soft, NTTP, ND : no SPT, no CVAT, burrows catheter [IS/NOT] present MSK: no pitting edema, no clubbing Neuro: non-focal, no sensory deficits, appropriate tone Psych: cooperative, euthymic mood - Labs CBC & Chem 7: 03/26/20 07:43 03/26/20 08:28 Labs: Abnormal Lab Results - Last 24 Hours (Table) 03/25/20 03/25/20 03/26/20 Range/Units 15:08 18:20 07:43 WBC 13.3 H (3.8-10.6) k/uL Plt Count 472 H (150-450) k/uL Neutrophils # 8.0 H (1.3-7.7) k/uL Monocytes # 1.3 H (0-1.0) k/uL Chloride (98-107) mmol/L Plasma Lactic Acid Jorden 2.8 H* 2.7 H* (0.7-2.0) mmol/L 03/26/20 Range/Units 08:28 WBC (3.8-10.6) k/uL Plt Count (150-450) k/uL Neutrophils # (1.3-7.7) k/uL Monocytes # (0-1.0) k/uL Chloride 111 H (98-107) mmol/L Plasma Lactic Acid Jorden (0.7-2.0) mmol/L Assessment and Plan Assessment: breakthrough seizure lactic acidosis severe metabolic acidosis leukocytosis GERD history of TBI mild hyperkalemia plan IVF hydration resume home meds seizure precautions neuro consult monitor labs , folllow up LA and renal function aspiration precautions CODE STATUS:full code DVT prophylaxis: mechanical Discussed with: Patient, ER, RN Anticipated length of stay <than [address]: home
[2020-03-26] MEDS ORDERED: ONDANSETRON 4 MG/2 ML VIAL IVP PRN (16:49)
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
[2020-03-26] MEDS ORDERED: DIVALPROEX ER 500 MG TAB.ER.24H PO SCH (18:30)
[2020-03-26] MEDS: OLANZapine 5 MG TAB PO SCH (21:18)
[2020-03-27 02:53] VITALS: RESP 16
[2020-03-27 07:37] VITALS: PULSE 76
[2020-03-27 07:56] VITALS: BP 135/78; TEMP 98.7
[2020-03-27] MEDS: SENNOSIDES-DOCUSATE SODIUM 1 EACH TAB PO SCH (08:26)
[2020-03-27] MEDS: FENOFIBRATE 160 MG TAB PO SCH (08:26)
[2020-03-27] MEDS: PANTOPRAZOLE 40 MG TABLET PO SCH (08:26)
--- NOTE | 2020-03-27 10:40 | P.DS ---
Providers Date of admission: 03/25/20 14:51 Attending physician: Xi Bowen MD Consults: 03/25/20 14:52 Consult Physician Urgent Consulting Provider: Jose Olsen Consult Reason/Comments: acute breakthrough seizure Do you want consulting provider notified?: Yes [facility] Course: breakthrough seizure lactic acidosis severe metabolic acidosis leukocytosis GERD history of TBI mild hyperkalemia 34 year old man with seizure disorder on valproic acid and hx of TBI presented with seizures and subtherapeutic AED. Neurology was consulted and recommended repeat CTH which ruled out intracranial hemorrhage, and uptitrated his depakote due to subtherapeutic levels. He was also noted to be dehydrated and given IVF to replete electrolyte abnormalities and acheive euvolemia. Patient recovered well with no further episodes of seizures while in the hospital. He was discharged with instructions to f/u with Neurology and PCP. New dose of depakote sent to pharmacy. Patient Condition at Discharge: Stable Plan - Discharge Summary Discharge Rx Participant: No New Discharge Prescriptions: New Divalproex ER [Depakote ER] 2,000 mg PO HS@2100 #30 tab.er.24h Continue Sennosides/Docusate Sodium [Senna Plus 8.6-50 mg Softgel] 1 cap PO BID@0800,2099 OLANZapine [ZyPREXA] 5 mg PO HS@2100 Fenofibrate [Lofibra] 160 mg PO DAILY@0800 Ergocalciferol (Vitamin D2) [Drisdol] 50,000 unit PO MO Pantoprazole [Protonix] 40 mg PO DAILY@0700 Sf 5000+ Cream (Toothpaste) 1 applic DENTAL HS@2100 Discontinued Divalproex ER [Depakote ER] 1,500 mg PO HS@2100 Discharge Medication List Ergocalciferol (Vitamin D2) [Drisdol] 50,000 unit PO MO 03/25/20 [History] Fenofibrate [Lofibra] 160 mg PO DAILY@0800 03/25/20 [History] OLANZapine [ZyPREXA] 5 mg PO HS@2100 03/25/20 [History] Pantoprazole [Protonix] 40 mg PO DAILY@0700 03/25/20 [History] Sennosides/Docusate Sodium [Senna Plus 8.6-50 mg Softgel] 1 cap PO BID@0800,209903/25/20 [History] Sf 5000+ Cream (Toothpaste) 1 applic DENTAL HS@209903/25/20 [History] Divalproex ER [Depakote ER] 2,000 mg PO HS@2099 #30 tab.er.24h 03/27/20 [Rx] Follow up Appointment(s)/Referral(s): Amado Ratliff MD [Primary Care Provider] - 1-2 days Activity/Diet/Wound Care/Special Instructions: Please call [facility] for transport when discharged #[phone] Discharge Disposition: HOME SELF-CARE Plan of Treatment: Please set up Neurology follow up as soon as possible, within the next 2-4 weeks
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
[2020-04-01] MEDS ORDERED: ERGOCALCIFEROL 50,000 UNIT CAP PO SCH (09:00)
== END 2020-03-27 13:36 | disposition home or self-care (01) ==
LOC: EC 11:36 → 4SSUR 14:51
PROVIDERS: ADMIT Family Medicine; ATTEND Family Medicine
DX: G40.909 Epilepsy, unspecified, not intractable, without status epilepticus (principal); E87.2 Acidosis; E86.0 Dehydration; R89.2 Abnormal level of other drugs, medicaments and biological substances in specimens from other organs, systems and tissues; D72.829 Elevated white blood cell count, unspecified; R47.01 Aphasia; G93.40 Encephalopathy, unspecified; G93.89 Other specified disorders of brain; K21.9 Gastro-esophageal reflux disease without esophagitis; J98.11 Atelectasis; E87.5 Hyperkalemia; F90.9 Attention-deficit hyperactivity disorder, unspecified type; F31.9 Bipolar disorder, unspecified; F41.9 Anxiety disorder, unspecified; G47.30 Sleep apnea, unspecified; Z99.89 Dependence on other enabling machines and devices; Z87.820 Personal history of traumatic brain injury; Z79.899 Other long term (current) drug therapy; Z88.8 Allergy status to other drugs, medicaments and biological substances; Z91.048 Other nonmedicinal substance allergy status; Z86.14 Personal history of Methicillin resistant Staphylococcus aureus infection; Z87.01 Personal history of pneumonia (recurrent); Z98.2 Presence of cerebrospinal fluid drainage device; Z90.81 Acquired absence of spleen; Z82.3 Family history of stroke; Z83.2 Family history of diseases of the blood and blood-forming organs and certain disorders involving the immune mechanism; Z80.9 Family history of malignant neoplasm, unspecified
CPT/HCPCS: 96361 ×3; 96365; 96366; 99285; 36415; 93005; 80164 ×3; 80165; 80053 ×2; 83605; 83735; 85025 ×2; 81003; 71045; 70450; G0378 ×3